=== PATIENT | female | born 1945 ===

== ENCOUNTER 2023-07-06 08:20 | Day surgery (SDC) | payer OTHER ==
[2023-06-29 09:18] LABS: PH,URINE 5.5 (5.0-8.0); URINE APPEARANCE Cloudy; URINE BILIRRUBIN Negative (NEGATIVE); URINE BLOOD Trace; URINE COLOR Yellow; URINE GLUCOSE Negative (NEGATIVE); URINE LEUKOCYTE Small; URINE NITRATE Positive; URINE PROTEIN Negative (NEGATIVE); URINE UROBILINOGEN 0.2 E.U./dl
[2023-06-29 09:22] LABS: HEMATOCRIT 40.4 % (36.0-45.00); HEMOGLOBIN 14.1 g/dL (12.0-15.00); MEAN CELL VOLUME 89.7 fL (80.00-100.00); MEAN CORPUSCULAR HEMOGLOBIN 31.2 pg (27.00-32.0); MEAN CORPUSCULAR HGB CONC 34.8 g/dl (32.0-36.0); PLATELET COUNT 233 K/uL (150-450); RED CELL DISTRIBUTION WIDTH 13.6 % (11.5-14.5); URINE EPITHELIAL CELLS 13.7 uL (0.0-38.8); URINE RBC 8.9 uL (0.0-20.8)
[2023-06-29 09:43] LABS: CALCIUM 8.7 mg/dL (8.5-10.1); CREATININE SERUM 0.75 mg/dL (0.55-1.02); GFR 74.93; INR 1.07; PARTIAL THROMBOPLASTIN TIME 28.3 SECONDS (22.0-34.0); POTASSIUM 4.01 mEq/L (3.5-5.1); PROTHROMBIN TIME 11.2 SECONDS (9.0-11.5)
[2023-06-29 09:44] LABS: URINE BACTERIA > 9821.5 uL (0.0-1933)
[~2023-07-06 08:20] MED LIST: CARBIDOPA; IRBESARTAN150 MG PO; MEMANTINE HCL E28 MG PO; PROBIOTICOS; SYNTHROID88 MCG PO; VITAMIN B12; VITAMINA
[2023-07-06] MEDS ORDERED: CEFTRIAXONE SODIUM 2,000 MG VIAL ONE (09:45)
[2023-07-06] MEDS ORDERED: METRONIDAZOLE/SODIUM CHLORIDE 500 MG/100 ML PIGGYBACK IV ONE (09:45)
[2023-07-06] MEDS ORDERED: ENOXAPARIN SODIUM 40 MG/0.4 ML SYRINGE SUBCUTANEO ONE ×2 (09:53→12:15)
[2023-07-06] MEDS ORDERED: CEFTRIAXONE SODIUM 2,000 MG in 0.9 % SODIUM CHLORIDE 50 ML IV ONE (12:15)
[2023-07-06] MEDS ORDERED: METRONIDAZOLE/SODIUM CHLORIDE 200 ML IV ONE (12:15)
[2023-07-06] MEDS ORDERED: TRAM1TAB98 PO (12:44)
[2023-07-06] MEDS ORDERED: NEURONTIN300 MG PO (12:44)
== END 2023-07-06 15:20 | disposition home or self-care (01) ==
LOC: CIR.AMB 08:20
PROVIDERS: ATTEND Surgery
DX: K81.1 Chronic cholecystitis (principal); K82.8 Other specified diseases of gallbladder